=== PATIENT | male | born 2000 | race African-American/Black ===

== ENCOUNTER 2022-03-29 08:51 | Emergency (ER) | payer OTHER ==
[2022-03-29 09:00] VITALS: BP 123/79
--- NOTE | 2022-03-29 09:37 | XRAY Report ---
PROCEDURE: Knee 4 View LT INDICATIONS: Trauma TECHNIQUE: 4 views of the left knee(s) were acquired. COMPARISON: None. FINDINGS: Bones: There is an ossification overlying the midportion of the joint space superior to the tibial s pine. It is best seen on frontal view. No suspicious bony lesions. Soft tissues moderate joint effusion. No suspicious soft tissue calcifications. IMPRESSION: Moderate effusion. Ossification overlying the joint space superior to the tibial spine a s above. This could represent a loose body. However, given history of trauma, avulsion injury cannot be excluded. Recommend short interval imaging follow-up in 7-10 days for further evaluation. Reviewed by: Anu Peña MD on 03/29/2022 9:36 AM PDT Approved by: Anu Peña MD on 03/29/2022 9:36 AM PDT Station ID: [id number]
--- NOTE | 2022-03-29 10:04 | ED Physician Documentation ---
PD HPI LOWER EXT INJURY - Stated complaint Stated Complaint: L KNEE SWELLING - Chief complaint Chief Complaint: Trauma Ext - History obtained from History obtained from: Patient - Additional information Additional information: The patient comes to the emergency department chief complaint of left knee pain and swelling after a football injury yesterday evening. He states that he was running with the ball when he was going to do a "spin move", but when he planted his foot he felt a pop, first on the lateral side and then on the medial side. He states then he hurt so he went out of the game. He states he has been able to walk on the knee but he has noticed some medial swelling. He states that the pain is not too bad when he walks and when he sits for a while it hurts more. No other injuries or complaints. No prior injuries to the knee. Review of Systems Ten Systems: 10 systems reviewed and negative Constitutional: reports: Reviewed and negative Eyes: reports: Reviewed and negative Ears: reports: Reviewed and negative Nose: reports: Reviewed and negative Throat: reports: Reviewed and negative Cardiac: reports: Reviewed and negative Respiratory: reports: Reviewed and negative GI: reports: Reviewed and negative : reports: Reviewed and negative Skin: reports: Reviewed and negative Musculoskeletal: reports: Joint pain, Joint swelling Neurologic: reports: Reviewed and negative Psychiatric: reports: Reviewed and negative Endocrine: reports: Reviewed and negative Immunocompromised: reports: Reviewed and negative PD PAST MEDICAL HISTORY - Allergies Allergies/Adverse Reactions: Allergies Allergy/AdvReac Type Severity Reaction Status Date / Time Penicillins Allergy Hives Verified 03/29/22 08:58 PD ED PE NORMAL - Vitals Vital signs reviewed: Yes - General General: Alert and oriented X 3, No acute distress, Well developed/nourished - HEENT HEENT: Atraumatic, PERRL, EOMI, Moist mucous membranes - Neck Neck: Supple, no meningeal sign - Respiratory Respiratory: No respiratory distress - Derm Derm: Normal color, Warm and dry, No rash - Extremities Extremities: No deformity, Other (Mild edema medial aspect left knee. No deformity. No instability. Moderate tenderness medial aspect; no other point tenderness.) - Neuro Neuro: Alert and oriented X 3 - Psych Psych: Normal mood, Normal affect Results - Vitals Vitals: Vital Signs - 24 hr 03/29/22 08:58 Heart Rate 84 Respiratory 16 Rate Blood Pressure 123/79 O2 Saturation 98 Oxygen O2 Source Room air - Rads (name of study) Left knee x-ray series Radiology: Final report received, EMP read indepedently, See rad report (Moderate effusion, ossification overlying the joint space superior to tibial spine could represent a loose body or avulsion cannot be excluded. Recommend interval imaging follow-up 7 to 10 days) PD MEDICAL DECISION MAKING - ED course Complexity details: reviewed results, re-evaluated patient, considered differential, d/w patient ED course: The patient was placed in knee immobilizer. He was advised to follow-up for interval imaging regarding the ossification versus avulsion. I suspect a sprain, Most likely of medial collateral ligament, based on the location of the patient swelling and tenderness. We have discussed symptomatic management at home and the usual indications for return. Departure - Departure Disposition: 01 Home, Self Care Clinical Impression: Left knee sprain Qualifiers: Encounter type: initial encounter Involved ligament of knee: unspecified ligament Qualified Code(s): S83.92XA - Sprain of unspecified site of left knee, initial encounter Condition: Stable Instructions: ED Sprain Knee Comments: Your x-ray shows some extra calcium along your knee joint, which may be just normal for you or could represent a small piece of bone pulled off by the sprain. The radiologist has recommended a repeat x-ray in 7 to 10 days to see how this is doing. Your primary injury is suspected to be a knee sprain, probably of the medial collateral ligament. You have been fitted with a knee immobilizer which she may use as needed for comfort. You may bear weight as tolerated. You may also take ibuprofen, Tylenol, and ice packs as needed. Please move your knee in a nonstrenuous fashion is much as possible to keep the range of motion up. You may slowly work back into more high-impact, strenuous use of the knee over the next several weeks, as tolerated. If the knee hurts when you perform an activity, then you should wait to do that activity until the knee does not hurt anymore. Please follow-up with your primary care physician for further evaluation, or if you would like to discuss MRI.
== END 2022-03-29 10:26 | disposition home or self-care (01) ==
LOC: ED 08:51
DX: S83.92XA Sprain of unspecified site of left knee, initial encounter (principal); X50.1XXA Overexertion from prolonged static or awkward postures, initial encounter; Y93.61 Activity, american tackle football
CPT/HCPCS: 99282; 99283

== ENCOUNTER 2022-04-03 11:23 | Emergency (ER) | payer OTHER ==
[2022-04-03] MEDS ORDERED: HYDROcod/ACETAM 5/325 MG TABLET PO STA (12:06)
--- NOTE | 2022-04-03 12:11 | ED Physician Documentation ---
PD HPI LOWER EXT INJURY - Stated complaint Stated Complaint: LT KNEE PX - Chief complaint Chief Complaint: Trauma Ext - History obtained from History obtained from: Patient - History of Present Illness PD HPI LOW EXT INJURY LOCATION: Left, Knee Type of injury: Twist Where injury occurred: [place] Timing - onset: How many weeks ago (1) Timing - duration: Weeks (1) Timing - details: Abrupt onset Pain level max: 9 Pain level now: 9 Improved by: Rest, Ice Worsened by: Other (walking) Associated symptoms: Swelling Contributing factors: No: Anticoagulated, Prior ortho surgery, Prosthetic joint, Work related Recently seen: Emergency Dept (seen here 1 week ago for same) - Additional information Additional information: 21-year-old male, 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 Original injury with a twisting injury while playing flag football. X-ray showed a possible tibial spine fracture versus loose body. Placed in a knee immobilizer. He states today he was walking and felt a pop in the medial aspect of the knee. Increased swelling to the knee. Unable to bear weight now. Has not yet seen his PCM or orthopedics. Review of Systems Constitutional: denies: Fever, Chills GI: denies: Vomiting Skin: denies: Rash Musculoskeletal: denies: Neck pain, Back pain Neurologic: denies: Headache PD PAST MEDICAL HISTORY - Past Medical History Past Medical History: No - Past Surgical History Past Surgical History: No - Present Medications Home Medications: Ambulatory Orders Medication Instructions Recorded Confirmed HYDROcod/ACETAM 5/325 [[place] 5/325] 1 - 2 ea PO Q6H PRN #14 tablet 04/03/22 - Allergies Allergies/Adverse Reactions: Allergies Allergy/AdvReac Type Severity Reaction Status Date / Time Penicillins Allergy Hives Verified 04/03/22 11:35 - Living Situation Living Arrangement: reports: At home - Social History Does the pt smoke?: No Does the pt have substance abuse?: No PD ED PE NORMAL - Vitals Vital signs reviewed: Yes - General General: Alert and oriented X 3, No acute distress - HEENT HEENT: Moist mucous membranes - Neck Neck: Supple, no meningeal sign - Cardiac Cardiac: RRR - Respiratory Respiratory: No respiratory distress, Clear bilaterally - Derm Derm: Warm and dry - Extremities Extremities: Other (L knee - ACL, LCL, PCL are intact. MCL does have some laxity. There is moderate joint effusion. Tenderness along the medial joint line. Unable to fully tolerate meniscus testing. NVI) - Neuro Neuro: Alert and oriented X 3 - Psych Psych: Normal mood, Normal affect Results - Vitals Vitals: Vital Signs - 24 hr 04/03/22 04/03/22 11:32 13:12 Temperature 36.2 C L 36.9 C Heart Rate 65 58 L Respiratory 16 16 Rate Blood Pressure 125/85 H 114/84 H O2 Saturation 100 99 Oxygen O2 Source Room air - Rads (name of study) L knee xray Radiology: Final report received, EMP read contemporaneously, See rad report PD MEDICAL DECISION MAKING - ED course Complexity details: reviewed results, re-evaluated patient, considered differential, d/w patient ED course: 21-year-old male with continued left knee pain. The joint effusion is decreased in size on x-ray compared to prior. Placed an articulating knee brace, 10 to 50 degrees Extension flexion. Neurovascular intact. Given crutches. Will place on pain medication and have him follow-up with orthopedics. Patient counseled regarding signs and symptoms for which I believe and urgent re-evaluation would be necessary. Patient with good understanding of and agreement to plan and is comfortable going home at this time This document was made in part using voice recognition software. While efforts are made to proofread this document, sound alike and grammatical errors may occur. IMPRESSION: Persistent ossific density in the midline joint space. Differential remains loose body versus tibial spine avulsion fracture. Consider follow-up MRI Departure - Departure Disposition: 01 Home, Self Care Clinical Impression: Knee effusion Qualifiers: Laterality: left Qualified Code(s): M25.462 - Effusion, left knee Body, loose, knee Qualifiers: Laterality: left Qualified Code(s): M23.42 - Loose body in knee, left knee Condition: Good Instructions: ED Effusion Knee Follow-Up: Orthopedic Care [Provider Group] - Within 1 week Prescriptions: HYDROcod/ACETAM 5/325 [[place] 5/325] 1 - 2 ea PO Q6H PRN #14 tablet PRN Reason: Pain Comments: Please follow-up with orthopedics for further care. Call their office for an appointment. You may need an MRI of your knee. Please use the knee brace and crutches at home. Please return if you worsen. Your prescriptions were sent to [facility] in [place]. I am prescribing a short course of narcotic pain medication for you. These are potentially dangerous and addictive medications that should be used carefully. These medications may constipate you. Take an [id number] stool softener (docusate) twice daily with plenty of water while taking these medications. If you go 24 hours without a bowel movement, take [id number] miralax, per package instructions. Do not drink or drive while taking these medications. If you received narcotic or sedating medications while in the emergency department, do not drive for 24 hours. Store this medication in a safe, secure place and out of reach of children. It is a violation of federal law to give or sell this medication to another person or to use in a manner other than prescribed. The ED will not refill narcotic prescriptions, including prescriptions lost or stolen. To dispose of unwanted medications: 1. [facility] at [address] in [place] has a medication drop box. They accept prescription medications (in pill form) Friday through Friday 9:00 a.m. to 5:00 p.m. 2. [facility] [employer] [facility] accepts prescription medications (in pill form only) for disposal year round. Call for more informati on. 3. Contact the [facility] for the next [facility] sponsored prescription drug collection event. , [phone], or [phone]; Forms: Activity restrictions Discharge Date/Time: 04/03/22 13:12
--- NOTE | 2022-04-03 12:46 | XRAY Report ---
PROCEDURE: Knee 4 View LT INDICATIONS: twisting injury x 1 week, inc med pain and swellin TECHNIQUE: 3 views of the left knee(s) were acquired. COMPARISON: None. FINDINGS: Bones: Similar ossific density overlying the midline joint space again noted. Soft tissues: Joint effusion is decreased IMPRESSION: Persistent ossific density in the midline joint space. Differential remains loose body versus tibial spine avulsion fracture. Consider follow-up MRI Reviewed by: Aubrey Mendoza MD on 04/03/2022 11:45 AM YESSI Approved by: Aubrey Mendoza MD on 04/03/2022 11:45 AM YESSI Station ID: [id number]
[2022-04-03 13:13] VITALS: BP 114/84
== END 2022-04-03 13:12 | disposition home or self-care (01) ==
LOC: ED 11:23
DX: M25.462 Effusion, left knee (principal); M23.42 Loose body in knee, left knee
CPT/HCPCS: 73564; 99282; 99283; A9270

== ENCOUNTER 2022-05-08 15:34 | Outpatient (CLI) | payer OTHER ==
--- NOTE | 2022-05-09 14:28 | MRI Report ---
PROCEDURE: KNEE WO - LT INDICATIONS: LEFT KNEE PAIN TECHNIQUE: Noncontrast sagittal PD fast spin echo and T2 fast spin echo with fat saturation, sagittal 3-D gradie nt sequence with fat saturation; coronal T1 spin echo and PD fast spin echo with fat saturation, and axial PD fast spin echo with fat saturation through the knee. COMPARISON: X-ray left knee, 03/26/2010 22 and 03/26. FINDINGS: Image quality: Excellent. Menisci: There is a bucket-handle type tear involving the body and posterior horn of the medial menis cus. There is a displaced meniscal fragment in the medial aspect of the intercondylar notch (series 5 image 15). A small vertical tear is seen in the posterior horn the lateral meniscus involving the intra-articula r surface (series 6 image 25). The vertical tear is also seen in the peripheral aspect of the body of the lateral meniscus. The meniscal root ligaments appear intact. Cruciate ligaments: The anterior cruciate ligament is torn. There is avulsion of the distal ACL from its attachment to the tibial eminence with a small avulsion fracture fragment within the intercondyl ar notch (series 4 image 18; series 11 image 14). There may be mild partial tear of the distal posterior cruciate ligament (series 5 image 21). Medial structures: There is grade 1 sprain of medial collateral ligament. The semimembranosus tendon insertions, and oblique popliteal ligament, and meniscocapsular junction appear intact. Visualized portions of the pes anserinus tendons appear normal. No abnormal bursal fluid. Lateral structures: Grade 1 sprain of the lateral collateral ligament. The the biceps femoris tendon and iliotibial band appear intact. There is edema in the posterior lateral joint capsule and contusi on or strain of the popliteus muscle tendinous junction. The popliteus tendon appears intact. Anterior structures: The quadriceps and patellar tendons appear intact. Patellar alignment is shay l. No femoral trochlear dysplasia or ventral trochlear prominence. No edema in the infrapatellar fa t pad. Bones and cartilage: Small evulsion fracture of the tibial eminence. There is bone marrow edema cons istent with bone contusions in the anterior aspect of the medial and lateral femoral condyles, as wel l as the posterior aspect of the medial and lateral tibial plateaus. The cartilage of the medial and lateral femorotibial compartments, as well as the patellofemoral compartment, appears normal in [facility]. Joint space: There is small knee joint effusion. No Limon's cyst. Normal appearing synovial plicae are incidentally noted. IMPRESSION: 1. ACL tear. There is avulsion of the distal ACL from the tibial eminence with a small avulsion fract ure fragment. 2. Bucket-handle type tear of the body and posterior horn the medial meniscus. There is a displaced m eniscal fragment within the medial aspect of the intercondylar notch. 3. Small vertical tear involving the inferior articular surface of the posterior horn the lateral men iscus. There is also a vertical tear involving the peripheral aspect of the body of the lateral menis cus. 4. Grade 1 sprain of MCL. 5. Grade 1 sprain of LCL. 6. Bone contusions involving the anterior aspect of the medial and lateral femoral condyles, as well as the posterior aspect of the medial and lateral tibial plateaus. 7. Contusion or strain of the popliteus musculotendinous junction. The popliteus tendon appears intac t. There is edema in the posterior lateral joint capsule. 8. Small knee joint effusion. Reviewed by: Mac Montes MD on 05/09/2022 2:26 PM PDT Approved by: Mac Montes MD on 05/09/2022 2:26 PM PDT Station ID: [id number]
== END 2022-05-08 15:35 | disposition home or self-care (01) ==
LOC: DI 15:34
PROVIDERS: ATTEND Preventive Medicine Aerospace Medicine
DX: S83.512A Sprain of anterior cruciate ligament of left knee, initial encounter (principal); S82.112A Displaced fracture of left tibial spine, initial encounter for closed fracture; S83.212A Bucket-handle tear of medial meniscus, current injury, left knee, initial encounter; S83.282A Other tear of lateral meniscus, current injury, left knee, initial encounter; S83.412A Sprain of medial collateral ligament of left knee, initial encounter; S83.422A Sprain of lateral collateral ligament of left knee, initial encounter; M25.462 Effusion, left knee; S70.12XA Contusion of left thigh, initial encounter; S80.12XA Contusion of left lower leg, initial encounter